=== PATIENT | female | born 1950 | race Caucasian/White ===

== ENCOUNTER 2018-11-12 19:02 | Emergency (ER) | payer MEDICARE, BC ==
[~2018-11-12] VITALS: Ht 170.2 cm; Wt 108.9 kg
[2018-11-12] MEDS ORDERED: OXYC-471 (19:10)
[2018-11-12] MEDS ORDERED: SUMA100T3 (19:10)
[2018-11-12] MEDS ORDERED: CYCL10TA9 (19:10)
[2018-11-12] MEDS ORDERED: TEMA30CA (19:10)
[2018-11-12] MEDS ORDERED: ONDA8TAB13 (19:10)
[2018-11-12] MEDS ORDERED: TIZA2TAB3 (19:10)
[2018-11-12] MEDS ORDERED: HYDR-3812 (19:10)
[2018-11-12] MEDS ORDERED: DOXE50CA3 (19:10)
[2018-11-12] MEDS ORDERED: ORPHENADRINE 60 MG/2 ML (NORFLEX) AMP IV ONE (19:15)
[2018-11-12] MEDS ORDERED: KETOROLAC 30 MG/ML VIAL IVP ONE (19:15)
[2018-11-12] MEDS ORDERED: diphenhydrAMINE 50 MG/ML INJ (BENADRYL) IVP ONE (19:15)
--- NOTE | 2018-11-12 19:15 | ED Back Pain ---
General Chief Complaint: Back Problems Stated Complaint: BACK PAIN Source of Information: Patient History of Present Illness Date Seen by Provider: Nov 12, 2018 Time Seen by Provider: 19:03 Initial Comments PT ARRIVES VIA EMS FROM HOME IN [place], [place]--MULTIPLE FAMILY MEMBERS ALSO HERE WITH PT ON HER ARRIVAL, INCLUDING HER PT IS COMPLETELY NAKED, EXCEPT FOR A TOP PT IS COVERED IN DIRT AND LEAVES C/O LOW BACK PAIN STATES SHE FELL 2 WEEKS AGO STATES SHE WAS STEPPING OUT HER DOOR AND SHE SLIPPED AND FELL, LANDING ON HER RIGHT SIDE STATES SHE WAS SEEN IN [facility] ER [address]EE[address] AGO AND HAD [address] OF HER HEAD ( STATES "BECAUSE I BOUNCED MY HEAD ON THE DOOR FRAME 3 TIMES), XRAYS OF HER SHOULDERS, HER HIPS/ PELVIS AND LOWER BACK. PT REPORTS THAT "THEY DIDN'T FIND ANYTHING" AND WAS GIVEN RX FOR HYDROCODONE STATES "IT DIDN'T TOUCH IT" STATES SHE HAS SEEN HER PCP, DR. VELOZ, IN [facility] TWICE SINCE THEN, AND PRESCRIBED OXYCODONE, WHICH SHE STATES "ISN'T TOUCHING IT" AND SHE RAN OUT TODAY AT 11:00. .STATES SHE CALLED DR. VELOZ'S OFFICE AND HE HAS WRITTEN RX'S FOR OXYCODONE AND VALIUM, WHICH HAVE BEEN WAITING FOR HER TO [employer] EDUC[employer] AT HIS OFFICE, BUT SHE DID NOT DO THAT. STATES RX FOR VALIUM WAS ONLY 1 PILL FOR HER TO TAKE FOR THE MRI STATES SHE HAS THERAPY SCHEDULED FOR TOMORROW, BUT "NOT GOING TO MAKE IT" DUE TO PAIN PT ALSO STATES THAT HER DR IS SUPPOSED TO HAVE SCHEDULED AN MRI OF HER BACK, BUT DOES NOT KNOW IF IT HAS BEEN SCHEDULED OR NOT LATER STATES THAT SHE HAS BEEN PRESCRIBED TIZANIDINE, BUT IT DID NOT HELP. STATES SHE IS TAKING CYCLOBENZAPRINE AND IT IS NOT HELPING STATES SHE GOT 1 SHOT OF TORADOL A COUPLE OF WEEKS AGO, AND 1 SHOT OF A STEROID 1 WEEK AGO AND NEITHER HELPED STATES PAIN IS IN HER LOWER BACK MOSTLY AND IS SHARP AND HAS BEEN HAVING SPASMS. STATES SHE HAS BEEN SLEEPING IN HER CAR BECAUSE SHE COULDN'T GET INTO BED. STATES SHE WAS CRAWLING ON THE GROUND TO GET TO THE CAR. STATES "HER WHOLE RIGHT SIDE IS NUMB" SINCE SHE GOT INTO THE AMBULANCE--STATES "JUST MY ARM AND MY LEG" WAS NOT HAVING ANY NUMBNESS OR TINGLING BEFORE THAT. PT ARRIVES ON EMS CART LAYING ON HER RIGHT SIDE. PT STATES "WHAT THEY GAVE ME IN THE AMBULANCE ISN'T TOUCHING IT" --EMS GAVE 200 [address] [facility] HAS HISTORY OF CHRONIC BACK PAIN BUT NEVER THIS BAD DOES NOT HAVE FOLLOW UP APPOINTMENT WITH HER DR. Other Comments PCP: [facility]. Allergies and Home Medications Allergies Coded Allergies: ciprofloxacin (Verified Allergy, Unknown, 11/12/18) Home Medications Lidocaine 1 Each Adh..patch, 1 EACH TP DAILY PRN Prescribed by: KIMBERLEE JACKSON on 11/12/182051 Methocarbamol 750 Mg Tablet, 750 MG PO QID Prescribed by: KIMBERLEE JACKSON on 11/12/182054 Methylprednisolone 4 Mg Tab.ds.pk, 4 MG PO UD Prescribed by: KIMBERLEE JACKSON on 11/12/182051 Ramipril 5 Mg Capsule, 5 MG PO DAILY, (Reported) Tramadol HCl 50 Mg Tablet, 50 MG PO Q4H Prescribed by: KIMBERLEE JACKSON on 11/12/182054 Patient Home Medication List Home Medication List Reviewed: Yes Review of Systems Constitutional: no symptoms reported Respiratory: no symptoms reported Cardiovascular: no symptoms reported Gastrointestinal: no symptoms reported Musculoskeletal: see HPI, back pain Skin: no symptoms reported Psychiatric/Neurological: See HPI Past [id number]-Gzjzyi Hx Patient Social History Alcohol Use: Denies Use Recreational Drug Use: No Smoking Status: Never a Smoker Past Medical History Surgeries: Yes (HYST/BSO--2 SURGERIES; RIGHT ANKLE FX/ORIF; CARPAL TUNNEL; ROTATOR CUFF REPAIR) Appendectomy, Hysterectomy, Oophorectomy, Orthopedic Respiratory: No Cardiac: Yes Hypertension Neurological: Yes Headaches /Migraines 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 oz. kg; BMI Method: General Appearance: No Apparent Distress, Obese, Other (LAYING ON RIGHT SIDE, WEARING ONLY A TOP, AND NOTHING ELSE. PT COVERED IN DIRT AND LEAVES. PT SOMEWHAT HOSTILE. ) HEENT: PERRL/EOMI Neck: Full Range of Motion, Normal Inspection, Non Tender, Supple Cardiovascular: Regular Rate, Rhythm, No JVD, No Murmur, Normal Peripheral Pulses Respiratory: Chest Non Tender, Normal Breath Sounds, No Accessory Muscle Use, No Respiratory Distress Peripheral Pulses: 1+ Dorsalis Pedis (R), 1+ Left Dors-Pedis (L) Gastrointestinal: Non Tender, Soft Back: Other (DIFFUSE TENDERNESS TO LUMBAR AREA) Extremity: Normal Capillary Refill, Normal Range of Motion, Non Tender, No Calf Tenderness, Pedal Edema (1+ BILATERALLY) Neurologic/Psychiatric: Alert, Oriented x3, No Motor/Sensory Deficits, Normal Mood/Affect, equipment monitor phototypesetting II-XII Norm as Tested Skin: Normal Color, Warm/Dry, Other (NO EXTERNAL EVIDENCE OF TRAUMA) Progress/Results/Core Measures Results/Orders My Orders Orders - KIMBERLEE JACKSON DO Ct Cerv/Thoracic/Lumbar Wo (11/12/18 19:14) Ketorolac Injection (Toradol Injection) (11/12/18 19:15) Orphenadrine Injection (Norflex Injectio (11/12/18 19:15) Diphenhydramine Injection (Benadryl Inje (11/12/18 19:15) Diphenhydramine Injection (Benadryl Inje (11/12/18 19:16) Ketorolac Injection (Toradol Injection) (11/12/18 19:17) Orphenadrine Injection (Norflex Injectio (11/12/18 19:17) Diazepam Tablet (Valium Tablet) (11/12/18 21:00) Oxycodone/Apap 7.5/325mg Tab (Percocet (11/12/18 21:00) Methylprednisolone Sod Succ (Solu-Medrol (11/12/18 21:00) Walker (11/12/18 20:55) Oxycodone/Apap 5/325mg Tablet (Percocet (11/12/18 21:15) Diazepam Tablet (Valium Tablet) (11/12/18 20:58) Methylprednisolone Sod Succ (Solu-Medrol (11/12/18 20:58) Oxycodone/Apap 5/325mg Tablet (Percocet (11/12/18 21:03) Medications Given in ED Current Medications Medications Dose Ordered Sig/Rob Route Start Time Stop Time Status Last Admin Dose Admin Diazepam 5 mg ONCE ONCE PO 11/12/18 21:00 11/12/18 21:15 DC 11/12/18 21:09 5 MG Diphenhydramine HCl 50 mg ONCE ONCE IVP 11/12/18 19:15 11/12/18 20:03 DC 11/12/18 19:20 50 MG Ketorolac Tromethamine 30 mg ONCE ONCE IVP 11/12/18 19:15 11/12/18 20:04 DC 11/12/18 19:20 30 MG Methylprednisolone Sodium Succinate 125 mg ONCE ONCE IVP 11/12/18 21:00 11/12/18 21:15 DC 11/12/18 21:08 125 MG Orphenadrine Citrate 60 mg ONCE ONCE IV 11/12/18 19:15 11/12/18 20:04 DC 11/12/18 19:20 60 MG Oxycodone/ Acetaminophen 2 tab ONCE ONCE PO 11/12/18 21:15 11/12/18 21:16 DC 11/12/18 21:09 2 TAB Vital Signs/I&O 11/12/18 11/12/18 11/12/18 19:02 21:09 21:50 Temp 98.4 98.4 98.4 Pulse 100 87 Resp 18 18 B/P (MAP) 149/83 (105) 156/91 (112) Pulse Ox 100 100 O2 Delivery Room Air Room Air Progress Progress Note : Progress Note SYMPTOMS IMPROVED AT DISMISSAL. PT ABLE TO LAY FLAT ON HER BACK ON RETURN FROM XRAY DEPT, BUT PT REFUSES TO ATTEMPT TO SIT UP OR STAND --STATES SHE "CAN'T MOVE " ORDERED A WALKER FOR PT, AND SHE REFUSES TO USE IT AND STATES SHE HAS 3 AT HOME , AND THAT SHE DOESN'T NEED IT. HAS NOT BEEN USING A WALKER AT HOME AT ANY TIME STRONGLY ADVISED HER THAT SHE NEEDS TO USE IT AT LEAST TEMPORARILY TO HELP HER AMBULATE. PT ABLE TO STAND FOR TRANSFER FROM ER CART TO WHEELCHAIR, AND THEN WAS ABLE TO WALK OUT OF ER FROM HER ER ROOM, AND INTO THE PARKING LOT ON HER OWN WITHOUT ASSIST AND ABLE TO GET INTO HER VEHICLE ON HER OWN, WITHOUT ANY ASSIST. Diagnostic Imaging Comments CT CERVICAL/THORACIC/LUMBAR SPINE--NO ACUTE PROCESS, DEGENERATIVE CHANGES, ESPECIALLY OF LOWER THORACIC SPINE, NO HIGH GRADE CANAL STENOSIS--PER RADIOLOGIST REPORT @ 2040 Reviewed: Reviewed by Me Departure Impression Primary Impression: Low back strain Additional Impression: S/P FALL 2 WEEKS AGO Disposition: HOME, SELF-CARE Condition: Improved Departure-Patient Inst. Referrals: DAMEON VELOZ MD Patient Instructions: Low Back Pain (DC), Muscle Strain (DC) Add. Discharge Instructions: MOIST HEAT TO SORE AREAS AT 20 MINUTE INTERVALS USE WALKER NEEDED GET YOUR PRESCRIPTIONS FILLED TOMORROW AND TAKE DIRECTED, INCLUDING OXYCODONE AND VALIUM THAT YOUR DR HAS ALREADY WRITTEN. FOLLOW UP WITH YOUR DR TOMORROW OR FRIDAY FOR FURTHER CARE All discharge instructions reviewed with patient and/or family. Voiced understanding. Scripts Tramadol HCl (Ultram) 50 Mg Tablet 50 MG PO Q4H, #20 TAB Prov: KIMBERLEE JACKSON DO 11/12/18 Methocarbamol (Robaxin-750) 750 Mg Tablet 750 MG PO QID, #40 TAB Prov: KIMBERLEE JACKSON DO 11/12/18 Lidocaine (Lidocaine) 1 Each Adh..patch 1 EACH TP DAILY PRN, #7 PATCH Prov: KIMBERLEE JACKSON DO 11/12/18 Methylprednisolone (Medrol) 4 Mg Tab.ds.pk 4 MG PO UD, #1 PKG Prov: KIMBERLEE JACKSON DO 11/12/18 KIMBERLEE JACKSON DO Nov 12, 2018 19:14
[2018-11-12] MEDS ORDERED: diphenhydrAMINE 50 MG/ML INJ (BENADRYL) ONE (19:16)
[2018-11-12] MEDS ORDERED: ORPHENADRINE 60 MG/2 ML (NORFLEX) AMP ONE (19:17)
[2018-11-12] MEDS ORDERED: KETOROLAC 30 MG/ML VIAL ONE (19:17)
[2018-11-12] MEDS ORDERED: SPIR25TA5 PO (19:29)
[2018-11-12] MEDS ORDERED: RAMI5CAP65 PO (19:29)
--- NOTE | 2018-11-12 20:33 | Diagnostic Imaging Report ---
EXAM: CT cervical, thoracic and lumbar spine without contrast. INDICATION: Fall. Back and neck pain. COMPARISON: None. FINDINGS: Cervical spine: Normal alignment. Vertebral body heights preserved. No fractures. Mild degenerative endplate changes and moderate to advanced diffuse facet arthropathy. No high-grade spinal canal narrowing is evident on this non-intrathecal contrast exam. The visualized paravertebral soft tissues are unremarkable. Thoracic spine: Normal alignment. Vertebral body heights preserved. No fractures. Moderate degenerative endplate changes including large anterior osteophytes in the lower thoracic spine. No evidence of high-grade spinal canal narrowing. The visualized lung francis are clear. Lumbar spine: Normal alignment. Vertebral body heights preserved. No fractures. Mild lower lumbar facet arthropathy. No substantial degenerative endplate changes. No evidence of high-grade spinal canal narrowing. There are mild degenerative changes in the sacroiliac joints. Small esophageal hiatal hernia. Ill-defined indeterminate low-attenuation masses in both kidneys may represent simple cysts. IMPRESSION: No acute CT findings in the cervical, thoracic or lumbar spine. No evidence of high-grade spinal canal narrowing. Chronic findings as above. Dictated by: Dictated on workstation # [id number]
[2018-11-12] MEDS ORDERED: LIDO700A45 TP (20:52)
[2018-11-12] MEDS ORDERED: METH4TAB PO (20:52)
[2018-11-12] MEDS ORDERED: TRAM-42 PO (20:55)
[2018-11-12] MEDS ORDERED: METH-313 PO (20:55)
[2018-11-12] MEDS ORDERED: methylPREDNISolone 125 MG (Solu-MEDROL) VIAL ONE (20:58)
[2018-11-12] MEDS ORDERED: DIAZEPAM 5 MG (VALIUM) TABLET ONE (20:58)
[2018-11-12] MEDS ORDERED: DIAZEPAM 5 MG (VALIUM) TABLET PO ONE (21:00)
[2018-11-12] MEDS ORDERED: methylPREDNISolone 125 MG (Solu-MEDROL) VIAL IVP ONE (21:00)
[2018-11-12] MEDS ORDERED: oxyCODONE/APAP 7.5-325 MG (PERCOCET 7.5) TABLET PO ONE (21:00)
[2018-11-12] MEDS ORDERED: oxyCODONE/APAP 5/325MG (PERCOCET 5) TABLET ONE (21:03)
[2018-11-12] MEDS ORDERED: oxyCODONE/APAP 5/325MG (PERCOCET 5) TABLET PO ONE (21:15)
--- NOTE | 2018-11-12 21:45 | NUR ---
PT REFUSED WALKER
[2018-11-12 21:50] VITALS: BP 156/91
--- NOTE | 2018-11-12 21:55 | NUR ---
PT AMBULATED TO [facility] WITH SBA X2. CLIMBED INTO [facility] WITHOUT ASSIST.
== END 2018-11-12 21:50 | disposition home or self-care (01) ==
LOC: EDUNIT# 19:02 → ER 19:04
DX: S39.012A Strain of muscle, fascia and tendon of lower back, initial encounter (principal); I10 Essential (primary) hypertension; G43.909 Migraine, unspecified, not intractable, without status migrainosus; K21.9 Gastro-esophageal reflux disease without esophagitis; E66.9 Obesity, unspecified; F32.9 Major depressive disorder, single episode, unspecified; Z87.19 Personal history of other diseases of the digestive system; Z87.440 Personal history of urinary (tract) infections; Z88.1 Allergy status to other antibiotic agents; Z79.52 Long term (current) use of systemic steroids; Z98.890 Other specified postprocedural states; Z90.710 Acquired absence of both cervix and uterus; Z90.49 Acquired absence of other specified parts of digestive tract; W01.0XXA Fall on same level from slipping, tripping and stumbling without subsequent striking against object, initial encounter
CPT/HCPCS: 72125; 72128; 72131